=== PATIENT | female | born 1995 | race Two or more races ===

== ENCOUNTER → 2024-03-25 | Emergency (ER) | payer OTHER ==
[~2024-03-25] VITALS: Ht 170.2 cm; Wt 65.8 kg
[~2024-03-25] MED LIST: KEPPRA500 MG PO
[2024-03-25 13:36] VITALS: BP 119/81; O2SAT 98
== END | disposition home or self-care (01) ==
LOC: ER 12:53
DX: S92.351A Displaced fracture of fifth metatarsal bone, right foot, initial encounter for closed fracture (principal); V03.19XA Pedestrian with other conveyance injured in collision with car, pick-up truck or van in traffic accident, initial encounter; Y93.02 Activity, running; Y92.413 State road as the place of occurrence of the external cause